=== PATIENT | female | born 1985 | race Caucasian/White ===

== ENCOUNTER 2017-05-12 22:14 | Emergency (ER) | payer BC, OTHER ==
--- NOTE | 2017-05-12 23:10 | ED ---
General Adult HPI - General Chief complaint: Vaginal Bleeding Stated complaint: Cramping, Vaginal Bleeding Time Seen by Provider: 05/12/17 22:32 Source: patient Mode of arrival: ambulatory Limitations: no limitations - History of Present Illness Initial comments: Patient is a 31 year old female who presents to the ED with chief complaint of abdominal cramping and vaginal bleeding for the past 6 hours. She admits to having a positive at-home test 4 days ago. She states she just finished a course of OTC vaginal yeast infection treatment. Patient states she has constant, sharp and cramping right lower quadrant abdominal pain with radiation down right thigh and to right side of back. She admits to feeling queasy for the past 3 days. She denies dysuria, hematuria or CVA tenderness. - Related Data Home Medications Medication Instructions Recorded Confirmed No Known Home Medications [No 05/12/17 05/12/17 Known Home Medications] Allergies Allergy/AdvReac Type Severity Reaction Status Date / Time No Known Allergies Allergy Verified 05/12/17 22:30 Review of Systems ROS Statement: Those systems with pertinent positive or pertinent negative responses have been documented in the HPI. ROS Other: All systems not noted in ROS Statement are negative. Past Medical History Past Medical History: No Reported History History of Any Multi-Drug Resistant Organisms: None Reported Past Surgical History: No Surgical Hx Reported Past Anesthesia/Blood Transfusion Reactions: No Reported Reaction Past Psychological History: Anxiety Smoking Status: Never smoker Past Alcohol Use History: Occasional Past Drug Use History: Marijuana General Exam Limitations: no limitations General appearance: alert, in no apparent distress Head exam: Present: atraumatic, normocephalic, normal inspection Eye exam: Present: normal appearance, PERRL, EOMI ENT exam: Present: normal exam, mucous membranes moist Neck exam: Present: normal inspection Respiratory exam: Present: normal lung sounds bilaterally. Absent: respiratory distress, wheezes, rales, rhonchi, stridor Cardiovascular Exam: Present: regular rate, normal rhythm, normal heart sounds. Absent: rubs, gallop GI/Abdominal exam: Present: soft, tenderness (right lower quadrant ), normal bowel sounds. Absent: distended, guarding, rebound, rigid Rectal exam: Present: deferred External exam: Present: normal external exam Speculum exam: Present: normal speculum exam, vaginal bleeding (mild bleeding at cervical os ) By manual exam: Present: uterine tenderness Extremities exam: Present: normal inspection, full ROM Back exam: Present: normal inspection. Absent: CVA tenderness (R) Neurological exam: Present: alert, oriented X3, CN II-XII intact Psychiatric exam: Present: normal affect, normal mood Skin exam: Present: warm, dry, intact, normal color. Absent: rash Course Vital Signs 05/12/17 05/12/17 22:23 23:19 Temperature 98.6 F 100.0 F H Pulse Rate 70 86 Respiratory 20 18 Rate Blood Pressure 160/78 151/91 O2 Sat by Pulse 98 98 Oximetry Medical Decision Making - Medical Decision Making Patient is in no distress and feels comfortable being discharged home. Rh was unable to be run. Talked to patient about re-drawing lab, she has been a difficult draw and refuses to be poked again. She states her blood type is B+ and review of previous medical records matches up. Patient was made aware of the consequences on baby of not verifying blood type. Patient voices understanding, stating she is unsure if she wants to keep the anyway. Ultrasound shows no evidence of gestational sac or signs of ectopic . Beta-hCG is 117.2. Patient is to follow up with OB or PCP within 2 days. She is to repeat beta-hcg in 48 hours. Advised patient to return to ED if symptoms should worsen. - Lab Data Result diagrams: 05/12/17 23:05 05/12/17 23:05 Lab Results 05/12/17 05/12/17 05/12/17 Range/Units 23:05 23:05 23:15 WBC 8.7 (3.8-10.6) k/uL RBC 4.78 (3.80-5.40) m/uL Hgb 14.9 (11.4-16.0) gm/dL Hct 43.1 (34.0-46.0) % MCV 90.3 (80.0-100.0) fL MCH 31.3 (25.0-35.0) pg MCHC 34.7 (31.0-37.0) g/dL RDW 13.9 (11.5-15.5) % Plt Count 150 (150-450) k/uL Neutrophils % 60 % Lymphocytes % 33 % Monocytes % 4 % Eosinophils % 2 % Basophils % 1 % Neutrophils # 5.2 (1.3-7.7) k/uL Lymphocytes # 2.8 (1.0-4.8) k/uL Monocytes # 0.3 (0-1.0) k/uL Eosinophils # 0.2 (0-0.7) k/uL Basophils # 0.1 (0-0.2) k/uL Sodium 136 L (137-145) mmol/L Potassium 3.9 (3.5-5.1) mmol/L Chloride 106 (98-107) mmol/L Carbon Dioxide 19 L (22-30) mmol/L Anion Gap 11 mmol/L BUN 15 (7-17) mg/dL Creatinine 0.60 (0.52-1.04) mg/dL Est GFR (MDRD) Af Amer >60 (>60 ml/min/1.73 sqM) Est GFR (MDRD) Non-Af >60 (>60 ml/min/1.73 sqM) Glucose 97 (74-99) mg/dL Calcium 9.4 (8.4-10.2) mg/dL Total Bilirubin 0.4 (0.2-1.3) mg/dL AST 17 (14-36) U/L ALT 33 (9-52) U/L Alkaline Phosphatase 78 (38-126) U/L Total Protein 6.7 (6.3-8.2) g/dL Albumin 4.0 (3.5-5.0) g/dL HCG, Quant 117.2 mIU/mL Urine Color Light Yellow Urine Appearance Clear (Clear) Urine pH 6.5 (5.0-8.0) Ur Specific [place] 1.017 (1.001-1.035) Urine Protein Negative (Negative) Urine Glucose (UA) Negative (Negative) Urine Ketones Negative (Negative) Urine Blood Negative (Negative) Urine Nitrite Negative (Negative) Urine Bilirubin Negative (Negative) Urine Urobilinogen <2.0 (<2.0) mg/dL Ur Leukocyte Esterase Negative (Negative) Disposition Clinical Impression: Threatened Disposition: HOME SELF-CARE Condition: Good Instructions: Threatened Miscarriage (ED) Additional Instructions: Please follow-up with primary care provider or OB within 2 days. Please have labs drawn in 48 hours. Referrals: None,Stated [Primary Care Provider] - 1-2 days Decision Time: 02:56
[2017-05-12 23:22] VITALS: RESP 18
[2017-05-12 23:33] LABS: Appearance,Urine Clear (Clear); Bilirubin,Urine Negative (Negative); Glucose,Urine (UA) Negative (Negative); Ketones,Urine Negative (Negative); Leukocyte Esterase,Urine Negative (Negative); Nitrite,Urine Negative (Negative); PH, Urine 6.5 (5.0-8.0); Protein,Urine Negative (Negative); Specific Gravity,Urine 1.017 (1.001-1.035); UA Billing (MACRO vs. MICRO) CHEM; Urobilinogen,Urine <2.0 mg/dL (<2.0)
[2017-05-12 23:33] LABS: Basophils # (A) 0.1 k/uL (0-0.2); Basophils % (A) 1 %; CH 33.2; Eosinophils # (A) 0.2 k/uL (0-0.7); Eosinophils % (A) 2 %; HCT 43.1 % (34.0-46.0); HDW 2.78; HGB 14.9 gm/dL (11.4-16.0); Luc # (Auto) 0.07; Luc % (Auto) 1; Lymphocytes # (A) 2.8 k/uL (1.0-4.8); Lymphocytes % (A) 33 %; MCH 31.3 pg (25.0-35.0); MCHC 34.7 g/dL (31.0-37.0); MCV 90.3 fL (80.0-100.0); Mean Platelet Volume 7.5; Monocytes # (A) 0.3 k/uL (0-1.0); Monocytes % (A) 4 %; Neutrophils # (A) 5.2 k/uL (1.3-7.7); Neutrophils % (A) 60 %; RBC 4.78 m/uL (3.80-5.40); RDW 13.9 % (11.5-15.5); WBC 8.7 k/uL (3.8-10.6)
[2017-05-12 23:47] LABS: ALT 33 U/L (9-52); AST 17 U/L (14-36); Alkaline Phosphatase 78 U/L (38-126); Anion Gap 11 mmol/L; Blood Urea Nitrogen 15 mg/dL (7-17); Calcium 9.4 mg/dL (8.4-10.2); Carbon Dioxide 19 mmol/L (22-30); Chloride 106 mmol/L (98-107); Glucose 97 mg/dL (74-99); Non-African American GFR(MDRD) >60 (>60 ml/min/1.73 sqM); Potassium 3.9 mmol/L (3.5-5.1); Sodium 136 mmol/L (137-145); Total Bilirubin 0.4 mg/dL (0.2-1.3); Total Protein 6.7 g/dL (6.3-8.2)
--- NOTE | 2017-05-13 00:24 | US ---
EXAMINATION TYPE: US OB <=14 wks transvag DATE OF EXAM: 05/13/2017 COMPARISON: NONE CLINICAL HISTORY: Pain. Spotting EXAM PERFORMED: Transvaginal (TV) and Transabdominal (TA) EXAM MEASUREMENTS: GESTATIONAL AGE / DATING Physician Established: Not yet established) Dates by LMP: (4 weeks/5 days) EDC: 01/15/2018 Dates by First Scan: No previous this is first scan Dates by Current Scan for: No IUP seen at this time ( MATERNAL ANATOMY Uterus: 7.0 x 4.2 x 5.5 cm Right Ovary: 3.3 x 1.8 x 2.3 cm Left Ovary: 3.1 x 1.3 x 1.2 cm Post CDS / Adnexa: wnl Presence of free fluid: no Presence of corpus luteal cyst: no Presence of subchorionic bleed: no GESTATION / SURVEY CRL: not seen at this time MSD: not seen at this time Yolk Sac (normal less than 6mm): not seen at this time IUP: No IUP seen at this time Date of LMP: 04/10/2017 Beta HcG (if available): Not available No IUP visualized at this time IMPRESSION: No evidence of a gestational sac. No sign of ectopic .
[2017-05-13 02:47] VITALS: BP 154/85; PULSE 72; TEMP 97.8
== END 2017-05-13 03:12 | disposition home or self-care (01) ==
LOC: EC 22:14
DX: O20.0 Threatened abortion (principal); Z3A.01 Less than 8 weeks gestation of pregnancy
CPT/HCPCS: 36415; 76801; 76817; 80053; 81003; 84702; 85025; 87086; 99284

== ENCOUNTER 2019-04-19 17:29 | Emergency (ER) | payer BC ==
[2019-04-19 17:35] VITALS: RESP 18
[2019-04-19] MEDS ORDERED: METOCLOPRAMIDE 5 MG/ML 2 ML VIAL IVP STA (17:53)
[2019-04-19] MEDS ORDERED: SODIUM CHLORIDE 0.9% 500 ML 500 ML IV ONE (17:53)
[2019-04-19] MEDS ORDERED: KETOROLAC 30 MG/ML 1 ML VIAL IVP STA (17:53)
[2019-04-19 18:38] LABS: Basophils # (A) 0.1 k/uL (0-0.2); Basophils % (A) 1 %; Eosinophils # (A) 0.1 k/uL (0-0.7); Eosinophils % (A) 2 %; HCT 45.2 % (34.0-46.0); HGB 15.6 gm/dL (11.4-16.0); Lymphocytes % (A) 26 %; MCH 30.6 pg (25.0-35.0); MCHC 34.5 g/dL (31.0-37.0); MCV 88.8 fL (80.0-100.0); Mean Platelet Volume 7.2; Monocytes # (A) 0.3 k/uL (0-1.0); Monocytes % (A) 4 %; Neutrophils # (A) 4.9 k/uL (1.3-7.7); Neutrophils % (A) 66 %; Platelet Count 243 k/uL (150-450); RDW 14.7 % (11.5-15.5); WBC 7.4 k/uL (3.8-10.6)
[2019-04-19 18:47] LABS: ALT 37 U/L (9-52); AST 34 U/L (14-36); African American GFR (CKD) >90 (>60 ml/min/1.73 sqM); Albumin 4.5 g/dL (3.5-5.0); Alkaline Phosphatase 92 U/L (38-126); Anion Gap 12 mmol/L; Blood Urea Nitrogen 10 mg/dL (7-17); Calcium 9.6 mg/dL (8.4-10.2); Carbon Dioxide 23 mmol/L (22-30); Chloride 104 mmol/L (98-107); Glucose 84 mg/dL (74-99); Sodium 139 mmol/L (137-145); Total Bilirubin 0.8 mg/dL (0.2-1.3); Total Protein 7.9 g/dL (6.3-8.2)
[2019-04-19 18:52] LABS: Potassium 4.2 mmol/L (3.5-5.1)
--- NOTE | 2019-04-19 19:29 | ED ---
Headache HPI - General Chief Complaint: Headache Stated Complaint: Weakness, tounge numbness Time Seen by Provider: 04/19/19 17:41 Source: patient, RN notes reviewed Mode of arrival: ambulatory Limitations: no limitations - History of Present Illness Initial Comments: 33-year-old female presents emergency Department with chief complaint of headache, numbness and tingling. Patient states that she developed a headache at work which seemed more like a sinus headache versus migraine headache and which she's had in the past. Patient states that she started worrying because she developed some right arm numbness but also left arm numbness which is still present right has resolved. Patient states that she felt like she had some tongue numbness so she states that she is very anxious at the time that immediately resolved. Patient has no current blurred vision no fevers chills no neck pain no weakness. She has no difficulty ambulating. Patient states that she took Excedrin Migraine prior arrival which is actually improving over symptoms. Patient has benign past history. Patient does admit that she restarted contrary he feels that the symptoms may be related. - Related Data Home Medications Medication Instructions Recorded Confirmed Naltrexone HCl/Bupropion HCl 1 tab PO DIRECTED 04/19/19 04/19/19 [Contrave ER 8-90 mg Tablet] Allergies Allergy/AdvReac Type Severity Reaction Status Date / Time No Known Allergies Allergy Verified 04/19/19 18:06 Review of Systems ROS Statement: Those systems with pertinent positive or pertinent negative responses have been documented in the HPI. ROS Other: All systems not noted in ROS Statement are negative. Past Medical History Past Medical History: No Reported History History of Any Multi-Drug Resistant Organisms: None Reported Past Surgical History: No Surgical Hx Reported Past Anesthesia/Blood Transfusion Reactions: No Reported Reaction Past Psychological History: Anxiety Smoking Status: Never smoker Past Alcohol Use History: Occasional Past Drug Use History: Marijuana General Exam Limitations: no limitations General appearance: alert, in no apparent distress Head exam: Present: atraumatic, normocephalic, normal inspection Eye exam: Present: normal appearance, PERRL, EOMI. Absent: scleral icterus, conjunctival injection, periorbital swelling ENT exam: Present: normal exam, normal oropharynx, mucous membranes moist, TM's normal bilaterally Neck exam: Present: normal inspection, full ROM. Absent: tenderness, meningismus, lymphadenopathy Respiratory exam: Present: normal lung sounds bilaterally. Absent: respiratory distress, wheezes, rales, rhonchi, stridor Cardiovascular Exam: Present: regular rate, normal rhythm, normal heart sounds. Absent: systolic murmur, diastolic murmur, rubs, gallop, clicks Neurological exam: Present: alert, oriented X3, CN II-XII intact, normal gait, reflexes normal, other (Finger to nose intact bilaterally). Absent: motor sensory deficit Skin exam: Present: warm, dry, intact, normal color. Absent: rash Course Vital Signs 04/19/19 17:30 Temperature 98.1 F Pulse Rate 71 Respiratory 18 Rate Blood Pressure 133/90 O2 Sat by Pulse 100 Oximetry Medical Decision Making - Medical Decision Making This a 33-year-old female presented for headache, intermittent numbness tingling on the left and right side. She has normal neuro exam she had a negative workup at this time. Patient symptom-free. This may related to a typical migraine. Patient will be discharged with follow-up return parameters discussed. Patient agrees with this plan. - Lab Data Result diagrams: 04/19/19 18:24 04/19/19 18:24 Lab Results 04/19/19 04/19/19 Range/Units 18:24 18:24 WBC 7.4 (3.8-10.6) k/uL RBC 5.10 (3.80-5.40) m/uL Hgb 15.6 (11.4-16.0) gm/dL Hct 45.2 (34.0-46.0) % MCV 88.8 (80.0-100.0) fL MCH 30.6 (25.0-35.0) pg MCHC 34.5 (31.0-37.0) g/dL RDW 14.7 (11.5-15.5) % Plt Count 243 (150-450) k/uL Neutrophils % 66 % Lymphocytes % 26 % Monocytes % 4 % Eosinophils % 2 % Basophils % 1 % Neutrophils # 4.9 (1.3-7.7) k/uL Lymphocytes # 2.0 (1.0-4.8) k/uL Monocytes # 0.3 (0-1.0) k/uL Eosinophils # 0.1 (0-0.7) k/uL Basophils # 0.1 (0-0.2) k/uL Sodium 139 (137-145) mmol/L Potassium 4.2 (3.5-5.1) mmol/L Chloride 104 (98-107) mmol/L Carbon Dioxide 23 (22-30) mmol/L Anion Gap 12 mmol/L BUN 10 (7-17) mg/dL Creatinine 0.61 (0.52-1.04) mg/dL Est GFR (CKD-EPI)AfAm >90 (>60 ml/min/1.73 sqM) Est GFR (CKD-EPI)NonAf >90 (>60 ml/min/1.73 sqM) Glucose 84 (74-99) mg/dL Calcium 9.6 (8.4-10.2) mg/dL Total Bilirubin 0.8 (0.2-1.3) mg/dL AST 34 (14-36) U/L ALT 37 (9-52) U/L Alkaline Phosphatase 92 (38-126) U/L Total Protein 7.9 (6.3-8.2) g/dL Albumin 4.5 (3.5-5.0) g/dL Disposition Clinical Impression: Migraine Disposition: HOME SELF-CARE Condition: Stable Instructions (If sedation given, give patient instructions): Acute Headache (ED) Additional Instructions: Please return to the Emergency Department if symptoms worsen or any other concerns. Is patient prescribed a controlled substance at d/c from ED?: No Referrals: None,Stated [Primary Care Provider] - 1-2 days Time of Disposition: 19:58
--- NOTE | 2019-04-19 19:32 | CT ---
EXAMINATION: CT brain wo con DATE AND TIME: 04/19/2019 6:36 PM CLINICAL INDICATION: Headache, bilateral arm and tongue numbness, pain TECHNIQUE: Standard departmental protocol.; 1044.4 COMPARISON: CT 07/21/2014 FINDINGS: The calvarium is intact. There is no intracranial hemorrhage. There is no intracranial mass or mass effect. No definite new intra-axial or extra-axial attenuation defect. The paranasal sinuses, middle ear cavities, and mastoid sinus air cells are clear. The orbits are unremarkable. IMPRESSION: NO ACUTE PROCESS.
[2019-04-19 20:51] VITALS: BP 142/86; PULSE 72; TEMP 98.6
== END 2019-04-19 20:46 | disposition home or self-care (01) ==
LOC: EC 17:29
DX: G43.909 Migraine, unspecified, not intractable, without status migrainosus (principal); R53.1 Weakness; R20.0 Anesthesia of skin; R20.2 Paresthesia of skin; Z79.891 Long term (current) use of opiate analgesic
CPT/HCPCS: 99284; 96374; 96375; 36415; 80053; 85025; 70450; J2765; J1885

== ENCOUNTER 2019-05-07 20:44 | Emergency (ER) | payer OTHER, BC ==
[2019-05-07 20:49] VITALS: RESP 18; TEMP 98.6
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
[2019-05-07] MEDS ORDERED: DIPH,PERTUS(ACELL)TETVAC-LF 0.5 ML VIAL IM ONE (21:45)
--- NOTE | 2019-05-07 22:01 | XR ---
EXAMINATION TYPE: XR ribs LT w pa chest xray DATE OF EXAM: 05/07/2019 COMPARISON: NONE HISTORY: Left-sided rib pain TECHNIQUE: 5 views FINDINGS: Heart and mediastinum are normal. Lungs are clear. There is no sign of pleural effusion or pneumothorax. Left ribs appear intact. IMPRESSION: Normal chest. Normal left ribs.
[2019-05-07 22:32] VITALS: BP 142/72; PULSE 86
== END 2019-05-07 22:25 | disposition home or self-care (01) ==
LOC: EC 20:44
DX: S40.022A Contusion of left upper arm, initial encounter (principal); S40.012A Contusion of left shoulder, initial encounter; Z23 Encounter for immunization; Z79.899 Other long term (current) drug therapy; V89.2XXA Person injured in unspecified motor-vehicle accident, traffic, initial encounter; W22.11XA Striking against or struck by driver side automobile airbag, initial encounter; Y92.410 Unspecified street and highway as the place of occurrence of the external cause
CPT/HCPCS: 90471; 90715; 99284

== ENCOUNTER → 2020-07-26 | Outpatient (CLI) | payer BC ==
--- NOTE | 2020-07-26 10:24 | MM ---
Reason for exam: screening (asymptomatic). Baseline mammogram. History: Patient had first child at age 29. Family history of breast cancer in mother at age 46 and breast cancer in aunt at age 50. Took hormonal contraceptives for 2 years. Physical Findings: Nurse did not find any significant physical abnormalities on exam. MG 3D Screening Mammo W/Cad Bilateral CC and MLO view(s) were taken. There are scattered fibroglandular densities. There are benign appearing round calcifications bilaterally. There is no discrete abnormality. These results were verbally communicated with the patient and result sheet given to the patient on 07/26/20. ASSESSMENT: Benign, BI-RAD 2 RECOMMENDATION: Routine screening mammogram of both breasts at age 38.
== END | disposition home or self-care (01) ==
LOC: RADMAMWWP 08:50
PROVIDERS: ATTEND Obstetrics & Gynecology
DX: Z08 Encounter for follow-up examination after completed treatment for malignant neoplasm (principal); Z80.3 Family history of malignant neoplasm of breast
CPT/HCPCS: 77063; 77067

== ENCOUNTER → 2023-12-30 | Outpatient (CLI) | payer BC ==
--- NOTE | 2023-12-30 13:38 | MM ---
Reason for Exam: Screening (asymptomatic). Last mammogram was performed 3 year(s) and 5 month(s) ago. Patient History: Menarche at age 10. First Full-Term at age 29. Late child-bearing (after 28). Currently using Hormonal Contraceptives, for 6 years. Maternal aunt had breast cancer, age 50. Mother had breast cancer, age 46. Risk Values: Norma 5 year model risk: 1.1%. NCI Lifetime model risk: 19.3%. Prior Study Comparison: 07/26/2020 Bilateral Screening Mammogram, [facility]. Tissue Density: There are scattered areas of fibroglandular density. Findings: Analyzed By CAD. Right breast: There is no suspicious group of microcalcifications or new suspicious mass. Left breast: There is no suspicious group of microcalcifications or new suspicious mass. Overall Assessment: Negative, BI-RAD 1 Management: Screening Mammogram of both breasts in [address] [facility] will attempt to contact patient to return for supplemental views and ultrasound if indicated. Patient should continue monthly self-breast exams. A clinical breast exam by your physician is recommended on an annual basis. This exam should not preclude additional follow-up of suspicious palpable abnormalities. Note on Norma scores and lifetime risk: 1. A Norma score greater than 3% is considered moderate risk. If this is the case, consider specialist referral to assess eligibility for a risk reducing agent. 2. If overall lifetime risk for the development of breast cancer is 20% or higher, the patient may qualify for future screening with alternating mammogram and breast MRI. Electronically signed and approved by: London Robertson DO
== END | disposition home or self-care (01) ==
LOC: RADMAMWWP 07:20
PROVIDERS: ATTEND Family Medicine
DX: Z12.31 Encounter for screening mammogram for malignant neoplasm of breast (principal); Z80.3 Family history of malignant neoplasm of breast
CPT/HCPCS: 77063; 77067